=== PATIENT | male | born 1950 | race Caucasian/White ===

== ENCOUNTER 2021-03-02 08:23 | Day surgery (SDC) | payer OTHER ==
[~2021-03-02] VITALS: Ht 175.3 cm; Wt 69.0 kg
[~2021-03-02 08:23] MED LIST: AGGRENOX PO; ALBU90OI INH; ALBU90OI6 INH; AMLO10 PO; Aspir 8181 MG PO; BUPR75 PO; DIPASPER PO; HTN MED; IBUP400 PO; IBUP600; LORA2 PO; LORAZAPAM; LOSA25 PO; NITR.4SL SL; OLME20 PO; ONDA4 PO; OXYC10TA19 PO; Omeprazole20 M1 PO; PRAV20 PO; Stool Softener100 MG PO; VERAMIST; [UNRECOGNIZED DRUG - REMARK]
[2021-03-02] MEDS ORDERED: PERCOCET 10-321 EAC1 PO (11:58)
--- NOTE | 2021-03-02 16:08 | NUR ---
Patient up to [facility] independently. Gait steady. Discharge instructions reviewed with patient. Patient verbalizes understanding. Copy given to patient to take home. Discharged via wheelchair to private car for ride home WITH BROTHER.
== END 2021-03-02 22:40 | disposition home or self-care (01) ==
LOC: ORSCMMR 08:23 → ORD 11:30 → ORSCMMR 22:40
PROVIDERS: Surgery
PROC: 0JH60WZ Insertion of Totally Implantable Vascular Access Device into Chest Subcutaneous Tissue and Fascia, Open Approach (ICD-10-PCS; principal; 2021-03-02 11:30)
DX: C25.2 Malignant neoplasm of tail of pancreas (principal); I10 Essential (primary) hypertension; E78.5 Hyperlipidemia, unspecified; F41.8 Other specified anxiety disorders; Z79.899 Other long term (current) drug therapy; F17.210 Nicotine dependence, cigarettes, uncomplicated
CPT/HCPCS: 77001; C1788; J0690; J1100; J1642; J2250; J2405; J2704; J3010; J7120